=== PATIENT | female | born 1960 | race Caucasian/White ===

== ENCOUNTER 2017-02-13 07:08 | Day surgery (SDC) | payer OTHER ==
[~2017-02-13] VITALS: Ht 154.9 cm; Wt 82.3 kg
[2017-02-13 07:50] VITALS: Ht 154.9 cm; Wt 82.3 kg
[2017-02-13] MEDS ORDERED: DCL25TEC PO (07:57)
[2017-02-13] MEDS ORDERED: LORA1TAB PO (07:57)
[2017-02-13] MEDS ORDERED: DOCU-144 PO (07:57)
[2017-02-13] MEDS ORDERED: AMLO-147 PO (07:57)
[2017-02-13] MEDS ORDERED: ESOM20CA PO (07:57)
[2017-02-13 08:14] VITALS: BP 120/73; PULSE 61; RESP 16
[2017-02-13] MEDS ORDERED: FENTAnyl 50 MCG/ML VIAL ONE (09:08)
[2017-02-13] MEDS ORDERED: MIDAZOLAM 1 MG/ML 2 ML INJ ONE ×2 (09:08)
[2017-02-13 09:30] VITALS: BP 95/49; PULSE 54; RESP 18
[2017-02-13 09:48] VITALS: BP 99/65; PULSE 54; RESP 18
--- NOTE | 2017-02-13 11:48 | GILP ---
DATE OF PROCEDURE: 02/13/2017 NAME OF PROCEDURES: 1. Esophagogastroduodenoscopy and biopsy. 2. Colonoscopy. SURGEON: Sarbjit Ferrer MD PREOPERATIVE DIAGNOSES: 1. Abdominal pain. 2. Change in the bowel habit. 3. Screening colonoscopy. POSTOPERATIVE DIAGNOSES: 1. Hiatal hernia and gastroesophageal reflux disease. 2. Gastritis. 3. Gastric mucosal biopsies were taken for Helicobacter pylori test. 4. Colonoscopy all the way to the cecum. 5. Poor prep with solid stool in the cecum and right colon making the exam very suboptimal. 6. Internal hemorrhoids. 7. No gross neoplasm was identified. INDICATION FOR THE PROCEDURE: Ms. Sissy Evans is a 56-year-old female patient who had upper a bdominal pain, not responding to therapy. She also noticed a change in the bowel habit. She had a history of colon polyps. She has a family history of colon cancer. The patient was scheduled for e ndoscopy and screening colonoscopy. The procedures and possible complications are well explained to the patient, she understood and cons ented to the procedure. DESCRIPTION OF PROCEDURE: Under the influence of fentanyl and Versed, the gastroscope was carefully introduced into the esophagus and under direct vision, it was advanced to the stomach and through t he pylorus into the duodenal bulb and descending duodenum. FINDINGS: ESOPHAGUS: The patient had hiatal hernia and gastroesophageal reflux disease. STOMACH: She had gastritis. Gastric mucosal biopsies were taken for H. pylori test. DUODENUM: Normal. The colonoscope was carefully introduced in the rectum and under direct vision, it was advanced all the way to the cecum. FINDINGS: The patient had poor prep, some solid stool in the cecum and right colon. The patient wa s noted to have internal hemorrhoids. No gross neoplasm was identified. She tolerated the procedures very well and there was no complication from the procedures. At the en d of the procedures, she was awake with stable vital signs and she was discharged home to the care o f her family. IMPRESSION: Please see postoperative diagnoses. PLAN: 1. Continue Nexium. 2. Add Zantac 300 mg p.o. at bedtime. 3. Because of the poor prep and suboptimal nature of the examination, the patient will need repeat colonoscopy with better preparation in 2 years. Dictated By: SARBJIT HOOPER/KIA Conf#: [id number] DID#: [id number] CC: SARBJIT FERRER MD;*[facility]*
== END 2017-02-13 10:32 | disposition home or self-care (01) ==
LOC: GIL 07:08
PROVIDERS: ATTEND Internal Medicine Gastroenterology
DX: Z12.11 Encounter for screening for malignant neoplasm of colon (principal); K44.9 Diaphragmatic hernia without obstruction or gangrene; K21.9 Gastro-esophageal reflux disease without esophagitis; K64.8 Other hemorrhoids; I10 Essential (primary) hypertension; E11.9 Type 2 diabetes mellitus without complications
CPT/HCPCS: 43239; 45378; 87081; J2250; J3010; Z7610

== ENCOUNTER 2017-05-20 08:05 | Day surgery (SDC) | payer OTHER ==
[~2017-05-20] VITALS: Ht 154.9 cm; Wt 75.9 kg
[2017-05-20] VITALS (13 sets, daily range): BP systolic 121–164; BP diastolic 69–93; PULSE 68–80; RESP 16–20; Ht 154.9 cm; Wt 75.9 kg
[~2017-05-20 08:05] MED LIST: AMLO-147 PO; DCL25TEC PO; DOCU-144 PO; ESOM20CA PO; LORA1TAB PO
[2017-05-20] MEDS ORDERED: CEFAZOLIN 1 GM/50 ML (PMX) 50 ML IVPB ONE (08:30)
[2017-05-20] MEDS ORDERED: SOD CHLORIDE 0.9% 1,000 ML IV ONE (08:30)
--- NOTE | 2017-05-20 09:08 | RADRPT ---
PROCEDURE: XR Chest. CLINICAL INDICATION: Preop. TECHNIQUE: Single frontal chest x-ray. COMPARISON: None available. FINDINGS: The cardiomediastinal silhouette is unremarkable. Mild left basilar atelectasis is noted. No pneumothorax, pleural effusion or consolidation is seen. No acute osseous abnormality is noted. IMPRESSION: 1. Mild left basilar atelectasis. Otherwise no acute cardiopulmonary abnormality. RPTAT: JJ .Carolina Knight MD, Date Time Electronically viewed and signed by .Carolina Knight MD, MD on 05/20/2017 09:08 .N/
[2017-05-20 09:24] LABS: ADD SCAN DIFF NO
[2017-05-20 09:26] LABS: BASOPHILS % 0.3 % (0.0-2.0); EOSINOPHILS # 0.1 10^3/ul (0.0-0.5); EOSINOPHILS % 0.9 % (0.0-7.0); HEMATOCRIT 45.2 % (37.0-47.0); HEMOGLOBIN 14.9 g/dl (12.0-16.0); LYMPHOCYTES # 2.5 10^3/ul (0.8-2.9); LYMPHOCYTES % 37.7 % (15.0-51.0); MEAN CORPUSCULAR VOLUME 87.9 fl (82.0-101.0); MEAN PLATELET VOLUME 9.8 fl (7.4-10.4); MONOCYTE # 0.3 10^3/ul (0.3-0.9); MONOCYTES % 4.9 % (0.0-11.0); NEUTROPHIL # 3.7 10^3/ul (1.6-7.5); NEUTROPHILS % 55.9 % (39.0-77.0); PLATELET COUNT 284 10^3/UL (140-415); RED BLOOD COUNT 5.14 10^6/ul (4.20-5.40); RED CELL DISTRIBUTION WIDTH 13.4 % (11.5-14.5); WHITE BLOOD COUNT 6.7 10^3/ul (4.8-10.8)
[2017-05-20 09:43] LABS: INR 0.82; PROTIME 11.3 Sec (12.2-14.2); PT RATIO 0.9
[2017-05-20 09:44] LABS: PARTIAL THROMBOPLASTIN TIME 26.6 Sec (25.0-35.0)
[2017-05-20 09:46] LABS: ALBUMIN 5.3 g/dl (3.3-4.9); ALBUMIN/GLOBULIN RATIO 1.51; BILIRUBIN,INDIRECT 0.4 mg/dl (0-1.1); BILIRUBIN,TOTAL 0.4 mg/dl (0.2-1.3); TOTAL PROTEIN 8.8 g/dl (6.1-8.1)
[2017-05-20 09:47] LABS: CREATININE 1.08 mg/dl (0.44-1.00); POTASSIUM 4.3 mmol/L (3.5-5.1)
[2017-05-20] MEDS ORDERED: SIMV10TA PO (09:52)
[2017-05-20] MEDS ORDERED: METO25TA7 PO (09:53)
[2017-05-20] MEDS ORDERED: GABA100C14 PO (09:55)
[2017-05-20] MEDS ORDERED: ASPI-664 PO (09:55)
[2017-05-20] MEDS ORDERED: NITR0.4T6 SL (09:57)
[2017-05-20] MEDS ORDERED: ISOSULFAN BLUE 1% 5 ML INJ SC ONE (10:40)
[2017-05-20] MEDS ORDERED: FENTAnyl 50 MCG/ML VIAL ONE (11:32)
[2017-05-20] MEDS ORDERED: SUCCINYLCHOLINE CHLORIDE 100 MG/5 ML SYG IV ONE (11:48)
[2017-05-20] MEDS ORDERED: ROCURONIUM 50 MG INJ ONE (11:48)
[2017-05-20] MEDS ORDERED: PROPOFOL 20 ML ONE (11:48)
[2017-05-20] MEDS ORDERED: CEFAZOLIN 1 GM INJ ONE (11:48)
[2017-05-20] MEDS ORDERED: NEOSTIGMINE 3 MG/3 ML SYRINGE ONE (11:48)
[2017-05-20] MEDS ORDERED: GLYCOPYRROLATE 0.4 MG INJ ONE (11:48)
[2017-05-20] MEDS ORDERED: LIDOCAINE 2% (SDV) 5 ML INJ ONE (11:48)
[2017-05-20] MEDS ORDERED: MEPERIDINE 25 MG INJ IV PRN (12:00)
[2017-05-20] MEDS ORDERED: hydrALAzine 20 MG INJ IV PRN (12:00)
[2017-05-20] MEDS ORDERED: ONDANSETRON 4 MG INJ IV PRN (12:00)
[2017-05-20] MEDS ORDERED: FENTAnyl 50 MCG/ML VIAL IV PRN ×2 (12:00)
[2017-05-20] MEDS ORDERED: DIPHENHYDRAMINE 50 MG INJ IV PRN (12:00)
[2017-05-20] MEDS ORDERED: METOCLOPRAMIDE 10 MG INJ IV PRN (12:00)
[2017-05-20] MEDS ORDERED: LABETALOL HCL 20MG INJ IV PRN (12:00)
[2017-05-20] MEDS ORDERED: HYDROmorphONE (0.2 MG/ML) 10ML SYG IV PRN ×3 (12:00)
[2017-05-20] MEDS ORDERED: SUGAMMADEX SODIUM 200 MG/2 ML VIAL IV ONE (12:46)
--- NOTE | 2017-05-20 18:50 | OPR ---
DATE OF OPERATION: 05/20/2017 PREOPERATIVE DIAGNOSIS: Invasive cancer, left breast. POSTOPERATIVE DIAGNOSIS: Invasive cancer, left breast. OPERATION PERFORMED: Left partial mastectomy and axillary dissection utilizing sentinel lymph node technique. ANESTHESIA: General. ANESTHESIOLOGIST: Registered nurse candle molder, Johanna Lutz. SURGEON: Ady Velasquez MD SOLUTIONS ARCHITECT CONSULTANT: Kayden Barbour MD INDICATIONS FOR PROCEDURE: The patient is a 56-year-old female who presented with a dimpling of her left breast, a vaguely palpable mass. Workup including mammography, ultrasonography and core biops y revealed an invasive cancer approximately 2 cm in diameter. The patient was counseled as to the r isks versus benefits of breast conservation surgery with left partial mastectomy and axillary dissec tion utilizing sentinel lymph node technique. She consented and was scheduled for surgery. DESCRIPTION OF PROCEDURE: The patient was brought to the operating theater, placed under general an esthesia. The left breast and axillary region were prepped and draped in usual sterile fashion. Ap proximately 4 mL of 1% Lymphazurin blue dye was then injected peritumorally. The breast was gently massaged for approximately 12 minutes. At this point, a 3 to 4 cm incision was made in the left ax illary hairline. Subcutaneous tissue was dissected with cautery down through the clavipectoral fasc ia. A dye-stained lymphatic was identified and traced to a very small node. This node was removed. It did not appear to be a true sentinel node. It was sent separately for pathologic analysis. Fu rther dissection revealed a second lymphatic which was traced to a somewhat larger node that appeare d somewhat suspicious. There were additional nodes in this area. Dr. Velasquez made the decision to pr oceed with level 1 axillary dissection. The largest sentinel node was marked with a suture. Blunt dissection along the chest wall allowed for identification of the long thoracic nerve, which was kep t out of harm's way. More superiorly, the axillary vein and thoracodorsal neurovascular bundle were identified and kept out of harm's way. Using a LigaSure device, the sentinel node and additional a xillary nodes were then then dissected. Final connective tissue attachments were then transected wi th cautery. Specimen was sent for intraoperative analysis of the sentinel node. There was no obvio us metastatic disease. Therefore, the additional nodes and the sentinel node was sent for permanent pathologic analysis. The wound was irrigated. Minimal bleeding was controlled with cautery. A #1 0 Italian Danilo-Arce drain was then brought through the left mid axillary line, cut to size and la id within the axilla. It was secured in place with 2-0 nylon suture in standard fashion. The incis ion was then closed with 4-0 Vicryl suture in subcuticular fashion. Attention was then directed to performing partial mastectomy. Dr. Velasquez made the decision to resect the area of the dimpling of the skin in an elliptical fashion. The incision was demarcated with ma rking pen carried out with 15 blade scalpel. Subcutaneous tissue was dissected with cautery. Skin edges were elevated with skin hooks and wide circumferential dissection of the tissue associated wit h the tumor then took place, taking great care to ensure adequate margin. The dissection proceeded down to the pectoralis major fascia. The specimen was then elevated and transected off of the under lying fascia. It was oriented and sent for permanent pathologic analysis. The wound was irrigated. Minimal bleeding was controlled with cautery. The skin incision was then reapproximated with mult iple 4-0 Vicryl sutures in deep dermal fashion, followed by final skin approximation with 4-0 Vicryl suture in subcuticular fashion and Dermabond was applied to both incisions. The patient tolerated procedure well. ESTIMATED BLOOD LOSS: 20 mL. COMPLICATIONS: There were no complications and the patient was transported in stable condition to [facility] recovery room where circumferential compression dressing was applied. Dictated By: ADY WEBSTER/KIA Conf#: [id number] DID#: [id number]
--- NOTE | 2017-05-22 10:30 | RADRPT ---
Vent Rate: 59 bpm RR Interval: 0 msec NM Interval: 138 msec QRS Duration: 82 msec QT Interval: 438 msec QTC Interval: 433 msec P-R-T [place]: 31 - 7 - 20 degrees Sinus bradycardia Nonspecific T wave abnormality Abnormal ECG Electronically Signed By: Isai Funez [id number]
== END 2017-05-20 15:20 | disposition home or self-care (01) ==
LOC: SDS 08:05
PROVIDERS: ATTEND Surgery Surgical Oncology
DX: C50.912 Malignant neoplasm of unspecified site of left female breast (principal); E66.9 Obesity, unspecified; Z68.31 Body mass index [BMI] 31.0-31.9, adult
CPT/HCPCS: 19301; 38500; 38792; 71010; 80053; 85025; 85610; 85730; 88307; 88331; 93005; J0690; J2405; J2710; J2765; J3010; J7999; Z7512; Z7610; Q9968

== ENCOUNTER 2019-05-21 08:42 | Day surgery (SDC) | payer MEDICAID ==
[~2019-05-21] VITALS: Ht 154.9 cm; Wt 82.2 kg
[~2019-05-21 08:42] MED LIST changes: +ASPI-817 PO; -DCL25TEC PO; -DOCU-144 PO; -ESOM20CA PO; +GABA100C14 PO; -LORA1TAB PO; +METO-335 PO; +NITR0.4T32 SL; +SIMV10TA PO
--- NOTE | 2019-05-21 10:16 | PREAC ---
Date/Time of Note Date/Time of Note DATE: 05/21/19 TIME: 10:12 Anesthesia Eval and Record Evaluation Time Pre-Procedure Interview DATE: 05/21/19 TIME: 10:12 Age 58 Sex female NPO: 8 hrs Preoperative diagnosis Abdominal pain, Change of Bowel Habit Planned procedure EGD, Colonoscopy Past Medical History Past Medical History: Includes Cardio: HTN, Dyslipidemia GI: Obesity Heme: Other (Breast Cancer) Surgery & Anesthesia Issues No known issue Meds Anticoagulation: No Beta Crys within 24 hr: Yes Reported Medications Nitroglycerin* (Nitroglycerin* SL) 0.4 Mg Tab.subl, 0.4 MG SL Q5MIN PRN for CHEST PAIN, BOTTLE 05/20/17 Aspirin* (Aspirin* EC) 81 Mg Tablet.dr, 81 MG PO DAILY, TAB 05/20/17 Gabapentin* (Gabapentin*) 100 Mg Capsule, 100 MG PO QHS, #90 CAP 05/20/17 Metoprolol Succinate* (Toprol XL*) 25 Mg Tab.sr.24h, 25 MG PO DAILY, #30 TAB 05/20/17 Simvastatin* (Zocor*) 10 Mg Tablet, 10 MG PO QHS, #30 TAB 05/20/17 Amlodipine Besylate* (Amlodipine Besylate*) 10 Mg Tablet, 2.5 MG PO DAILY, #30 TAB 02/13/17 Meds reviewed: Yes Allergies Coded Allergies: No Known Drug Allergies (Verified Allergy, Unknown, 05/20/17) Allergies Reviewed: Yes Labs/Studies Labs Reviewed: Reviewed by anesthesiologist test: N/A Pre-procedure Exam Airway: Adequate mouth opening Mallampati: Mallampati III Teeth: Normal Lung: Normal Heart: Normal ASA Physical Status ASA physical status: 3 Emergency: None Planned Anesthetic General/MAC: MAC Pre-operative Attestations Prior to commencing anesthesia and surgery, the patient was re-evaluated, there was verification of: *The patient's identity *The results of appropriate recent lab work and preoperative vital signs *The above evaluation not changing prior to induction *Anesthetic plan, risk benefits, alternative and complications discussed with patient/family; questions answered; patient/family understands, accepts and wishes to proceed. LUX CROOKS MD May 21, 2019 10:16
[2019-05-21] MEDS ORDERED: PROPOFOL 60 ML ONE (10:18)
[2019-05-21 10:19] VITALS: BP 155/67; PULSE 71; RESP 20
[2019-05-21 10:25] VITALS: Ht 154.9 cm; Wt 82.2 kg
[2019-05-21] MEDS ORDERED: LETROZOLE (10:30)
[2019-05-21] MEDS ORDERED: ATORVASTATIN (10:30)
[2019-05-21] MEDS ORDERED: ZANTAC (10:30)
--- NOTE | 2019-05-21 11:01 | PAC ---
Date/Time of Note Date/Time of Note DATE: 05/21/19 TIME: 11:01 Post-Anesthesia Notes Post-Anesthesia Note Last documented vital signs VSS Activity: WNL Respiratory function: WNL Cardiovascular function: WNL Mental status: Baseline Pain reasonably controlled: Yes Hydration appropriate: Yes Nausea/Vomiting absent: Yes LUX CROOKS MD May 21, 2019 11:01
[2019-05-21 11:30] VITALS: BP 132/63; PULSE 70; RESP 18
--- NOTE | 2019-05-21 18:21 | CONS ---
DATE OF ADMISSION: 05/21/2019 DATE OF CONSULTATION: 05/15/2019 PATIENT NAME: CHRISTINA EVANS TYPE OF CONSULTATION: Preoperative gastroenterology. Dear Dr. Fofana: Thank you very much for this kind referral. HISTORY OF PRESENT ILLNESS: Ms. Christina Evans is a 58-year-old female patient who has been refer red to me for further evaluation of upper abdominal pain and chronic heartburn not completely respond ing to therapy with Zantac. The patient is not taking any nonsteroidal anti-inflammatory agents. No history of gallstones or liver disease. Her appetite has been good, and there is no history of sign ificant weight loss. The patient also complains of change in the bowel habit. She has history of co dunia polyps. She has strong family history of colon cancer. During last colonoscopy, the patient had poor prep with solid stool making the exam very suboptimal. She has hypertension and diabetes. No history of heart disease, lung problem or kidney disease. SOCIAL HISTORY: Nonsmoker. No alcohol abuse. FAMILY HISTORY: The patient's mother had colon cancer. ALLERGIES: NO DRUG ALLERGIES. MEDICATIONS: 1. Amlodipine. 2. Zantac. 3. Letrozole 4. Atorvastatin. PHYSICAL EXAMINATION: GENERAL: She is 5 feet 1 inch tall and weighs 179 pounds. HEART: Normal heart sounds. LUNGS: Clear. ABDOMEN: Soft, no masses. Normal bowel sounds. NEUROLOGIC: Normal neurological exam. IMPRESSION: 1. Upper abdominal pain and chronic heartburn, not responding to therapy with Zantac. 2. Change in the bowel habit. 3. History of colon polyp. 4. Family history of colon cancer. 5. Last colonoscopy was suboptimal because of the poor prep and solid stool in the proximal part of the colon. 6. Hypertension. 7. Diabetes mellitus. 8. Hyperlipidemia. 9. Status post lumpectomy and chemotherapy for breast cancer. PLAN: 1. Colonoscopy and upper endoscopy for further evaluation. 2. Because of the obesity with a short thick neck, she needs monitored anesthesia care. 3. The procedures and possible complications are well explained to the patient. She understands and consents to the procedures. 4. The patient was prescribed Dexilant 60 mg p.o. q.a.m. for upper abdominal pain and chronic heartb urn. I thank you once again. With warmest personal regards, Dictated By: SARBJIT FERRER MD GD/NTS Conf#: [id number] DID#: [id number] CC: Lori Fofana MD;*[facility]*
== END 2019-05-21 12:52 | disposition home or self-care (01) ==
LOC: GIL 08:42
PROVIDERS: ATTEND Internal Medicine Gastroenterology
DX: R19.4 Change in bowel habit (principal); K64.8 Other hemorrhoids; K44.9 Diaphragmatic hernia without obstruction or gangrene; K21.9 Gastro-esophageal reflux disease without esophagitis
CPT/HCPCS: 43239; 45378; 88305; Z7610